=== PATIENT | male | born 1965 | race Caucasian/White ===

== ENCOUNTER → 2017-04-03 | Outpatient (CLI) | payer OTHER ==
[~2017-04-03] MED LIST: ACTOS45 MG PO; ANTIVERT25 MG PO; ASPIR LOW81 MG PO; ATIVAN; ATIVAN0.5 MG PO; GLYBURIDE2.5 MG PO; HUMALOG100 U/ML SC; INSULIN SYRING1 EAC1 MC; LEVEMIR10 ML SC; LISINOPRIL2.5 MG PO; METFORMIN1000 MG PO; TAMIFLU75 MG PO; [UNRECOGNIZED DRUG - SUPPLY] SQ
[2017-04-03 07:29] LABS: ALBUMIN 3.7 gm/dl (3.1-4.5); BUN 17 mg/dl (7-24); CHLORIDE 104 mmol/L (98-107); POTASSIUM 3.7 mmol/L (3.5-5.1); SGOT/AST 39 IU/L (3-35); SGPT/ALT 90 U/L (12-78); SODIUM 140 mmol/L (136-145)
[2017-04-03 07:32] LABS: ALKALINE PHOSPHATASE 132 U/L (45-117); CHOLESTEROL 155 mg/dL (<200); CREATININE 0.87 mg/dL (0.70-1.30); HDL CHOLESTEROL 32 mg/dl (40-60); LDL CHOLESTEROL 43 mg/dL (9-159); TOTAL PROTEIN 7.1 gm/dL (6.4-8.2); TRIGLYCERIDES 398 mg/dl (<150); VLDL CHOLESTEROL 80 mg/dL (6-40)
== END | disposition home or self-care (01) ==
LOC: LAB 06:22
PROVIDERS: Family Medicine
DX: E78.1 Pure hyperglyceridemia (principal); G47.62 Sleep related leg cramps

== ENCOUNTER → 2018-05-11 | Outpatient (CLI) | payer OTHER ==
[2018-05-12 06:10] LABS: HEPATITIS B SURFACE AB 006395 Non Reactive (.); HEPATITIS B SURFACE AG Negative (Negative); HEPATITIS C VIRUS ANTIBODY <0.1 s/co (0.0-0.9)
[2018-05-13 03:14] LABS: TESTOSTERONE FREE, (DIRECT) 3.9 pg/mL (7.2-24.0)
== END | disposition home or self-care (01) ==
LOC: LAB 17:24
PROVIDERS: Nurse Practitioner Primary Care
DX: E11.9 Type 2 diabetes mellitus without complications (principal); R74.8 Abnormal levels of other serum enzymes; N52.9 Male erectile dysfunction, unspecified

== ENCOUNTER → 2018-05-20 | Outpatient (CLI) | payer OTHER | END | disposition home or self-care (01) | LOC: US 09:27 | DX: R74.8 Abnormal levels of other serum enzymes (principal) ==

== ENCOUNTER → 2019-01-30 | Outpatient (CLI) | payer OTHER | END | disposition home or self-care (01) | LOC: ORTHO 00:19 | DX: M17.11 Unilateral primary osteoarthritis, right knee (principal); M79.89 Other specified soft tissue disorders ==

== ENCOUNTER → 2019-03-03 | Outpatient (CLI) | payer OTHER | END | disposition home or self-care (01) | LOC: MRI 08:48 | DX: M70.41 Prepatellar bursitis, right knee (principal); S83.209A Unspecified tear of unspecified meniscus, current injury, unspecified knee, initial encounter; M25.461 Effusion, right knee; Y93.89 Activity, other specified; X58.XXXA Exposure to other specified factors, initial encounter; Y92.89 Other specified places as the place of occurrence of the external cause; Y99.8 Other external cause status ==

== ENCOUNTER → 2020-04-08 | Outpatient (CLI) | payer OTHER ==
[~2020-04-08] MED LIST changes: +METFORMIN HYD1000 MG PO; +NORCO 5-325 TA1 EACH PO
[2020-04-08 14:46] LABS: BUN 18 mg/dl (7-24); CHLORIDE 107 mmol/L (98-107); CREATININE 1.02 mg/dL (0.70-1.30); POTASSIUM 4.3 mmol/L (3.5-5.1); SODIUM 141 mmol/L (136-145)
== END | disposition home or self-care (01) ==
LOC: LAB 00:54 → COVID19 00:54
PROVIDERS: ATTEND Orthopaedic Surgery
DX: Z01.818 Encounter for other preprocedural examination (principal); M23.203 Derangement of unspecified medial meniscus due to old tear or injury, right knee; Z20.828 Contact with and (suspected) exposure to other viral communicable diseases

== ENCOUNTER → 2020-04-11 | Day surgery (SDC) | payer OTHER ==
[~2020-04-11] VITALS: Ht 180.3 cm; Wt 104.3 kg
[2020-04-11 09:00] VITALS: BP 129/81
[2020-04-11 11:20] VITALS: BP 119/62
[2020-04-11 11:35] VITALS: BP 92/45
[2020-04-11 11:50] VITALS: BP 100/57
[2020-04-11 12:05] VITALS: BP 116/57
[2020-04-11 12:20] VITALS: BP 116/69
== END | disposition home or self-care (01) ==
LOC: SDC 04-08 13:15
PROVIDERS: ATTEND Orthopaedic Surgery
DX: M23.203 Derangement of unspecified medial meniscus due to old tear or injury, right knee (principal); M17.11 Unilateral primary osteoarthritis, right knee; E11.9 Type 2 diabetes mellitus without complications; Z98.890 Other specified postprocedural states; Z83.3 Family history of diabetes mellitus; Z82.49 Family history of ischemic heart disease and other diseases of the circulatory system

== ENCOUNTER → 2020-04-23 | Outpatient (CLI) | payer OTHER | END | disposition home or self-care (01) | LOC: COVID19 02:08 | PROVIDERS: ATTEND Nurse Practitioner Primary Care | DX: U07.1 COVID-19 (principal) ==

== ENCOUNTER → 2021-04-25 | Outpatient (CLI) | payer BC | END | disposition home or self-care (01) | LOC: ORTHO 00:28 | PROVIDERS: ATTEND Orthopaedic Surgery | DX: M17.11 Unilateral primary osteoarthritis, right knee (principal) ==

== ENCOUNTER → 2023-06-23 | Outpatient (CLI) | payer OTHER | END | disposition home or self-care (01) | LOC: US 08:54 | PROVIDERS: ATTEND Nurse Practitioner Family | DX: K76.0 Fatty (change of) liver, not elsewhere classified (principal); R94.5 Abnormal results of liver function studies; Z90.49 Acquired absence of other specified parts of digestive tract ==